=== PATIENT | female | born 1950 | race African-American/Black ===

== ENCOUNTER 2016-11-22 11:41 | Observation (INO) | payer MEDICARE, OTHER ==
[~2016-11-22] VITALS: Ht 177.8 cm; Wt 120.2 kg
[~2016-11-22 11:41] MED LIST: AMLO-324; DILT-32; FLUO-124 PO; LORA-249; REV20; SUCR1TAB; ZOLP5TAB2
[2016-11-22] MEDS ORDERED: ONDANSETRON HCL 4MG/2ML VIAL IV ONE (13:45)
[2016-11-22] MEDS ORDERED: MECLIZINE 25MG TABLET PO ONE (13:45)
[2016-11-22] MEDS ORDERED: KETOROLAC 30MG/ML VIAL IV ONE (13:45)
[2016-11-22 14:32] LABS: BASOPHILS % 0.3 % (0.0-2.0); EOSINOPHILS % 0.6 % (0.0-5.0); HEMATOCRIT. 35.9 % (36.0-48.0); HEMOGLOBIN. 11.9 g/dL (12.0-16.0); LYMPHOCYTES % 18.6 % (20.0-50.0); MEAN CORPUSCULAR HEMOGLOBIN 26.4 pg (28.0-32.0); MEAN CORPUSCULAR VOLUME 79.4 fL (81.0-99.0); MEAN PLATELET VOLUME 9.1 fl (7.4-10.4); MONOCYTES % 6.3 % (2.0-8.0); NEUTROPHILS % 74.2 % (40.0-76.0); PLATELET 282 x1000/uL (130-400); RED BLOOD CELL COUNT 4.52 mill/uL (4.2-5.4)
[2016-11-22 14:38] LABS: CHLORIDE 109 mEq/L (98-107)
[2016-11-22 14:45] LABS: CARBON DIOXIDE 28 mEq/L (21-32)
[2016-11-22 14:47] LABS: ETHANOL BLOOD < 10 mg/dL
[2016-11-22 15:03] LABS: BG BASE EXCESS 0.5 mmol/L (-2.0-2.0); BG CARBOXYHEMOGLOBIN 0.5 % (0.5-1.5); BG DEOXYHEMOGLOBIN 4.8 % (0.0-5.0); BG FRACTION INSPIRED OXYGEN 21; BG HCO3 ACT 25.1 mmol/L (22.0-26.0); BG METHEMOGLOBIN 0.1 % (0.0-1.5); BG OXYGEN SATURATION 95.2 % (92.0-98.5); BG OXYHEMOGLOBIN 94.6 % (94.0-97.0); BG PCO2 40.2 mmHg (35.0-45.0); BG PH 7.413 (7.350-7.450); BG SAMPLE SITE RIGHT BRACHIAL; BG TOTAL HEMOGLOBIN 12.7 g/dL (12.0-18.0); BG VENT MODE ROOM AIR
[2016-11-22 15:47] LABS: CLARITY URINE TURBID (CLEAR); COLOR URINE YELLOW (YELLOW); GLUCOSE URINE NEGATIVE (NEGATIVE); KETONES URINE NEGATIVE (NEGATIVE); LEUKOCYTE ESTERASE URINE NEGATIVE (NEGATIVE); NITRITE URINE NEGATIVE (NEGATIVE); OCCULT BLOOD URINE NEGATIVE (NEGATIVE); PH URINE 8.5 (4.5-8.0); PROTEIN URINE NEGATIVE (NEGATIVE); SPECIFIC GRAVITY URINE 1.017 (1.005-1.030)
[2016-11-22] MEDS ORDERED: DOCUSATE SODIUM 100MG CAPSULE PO PRN (16:00)
[2016-11-22] MEDS ORDERED: CLONIDINE 0.1MG TABLET PO PRN (16:00)
[2016-11-22] MEDS ORDERED: ONDANSETRON HCL 4MG/2ML VIAL IV PRN (16:00)
[2016-11-22] MEDS ORDERED: MECLIZINE 25MG TABLET PO PRN (16:00)
[2016-11-22] MEDS ORDERED: ACETAMINOPHEN 325MG TABLET PO PRN (16:00)
[2016-11-22 16:01] LABS: *AMPHETAMINES SCREEN URINE NEGATIVE (NEGATIVE); *BARBITURATES SCREEN URINE NEGATIVE (NEGATIVE); *BENZODIAZEPINES SCREEN URINE NEGATIVE (NEGATIVE); *COCAINE SCREEN URINE NEGATIVE (NEGATIVE); CANNABINOID URINE SCREEN NEGATIVE (NEGATIVE); METHADONE URINE SCREEN NEGATIVE (NEGATIVE); OPIATES URINE SCREEN NEGATIVE (NEGATIVE); PHENCYCLIDINE URINE SCREEN NEGATIVE (NEGATIVE)
[2016-11-22] MEDS: HYDROCODONE/ACETAMINOPHEN 5/325MG TABLET PO PRN ×2 (17:12→21:49)
[2016-11-22 20:00] VITALS: BP 134/83
[2016-11-22 20:10] VITALS: BP 134/83
[2016-11-22] MEDS ORDERED: SODIUM CHLORIDE 0.9% 1,000 ML IV SCH (20:30)
[2016-11-22] MEDS: SUCRALFATE 1G TABLET PO SCH (20:42)
[2016-11-22] MEDS: ENOXAPARIN 30MG/0.3ML SYR SUBCUT SCH (20:43)
[2016-11-23] VITALS: BP 128/76
[2016-11-23 04:00] VITALS: BP 120/76
[2016-11-23] MEDS ORDERED: AMLO10TA80 PO (04:05)
[2016-11-23] MEDS ORDERED: OMEP20CA10 PO (04:07)
[2016-11-23] MEDS ORDERED: MELO-58 PO ×2 (04:09)
[2016-11-23] MEDS ORDERED: TRAM50TA3 PO (04:10)
[2016-11-23 05:44] LABS: BASOPHILS % 0.3 % (0.0-2.0); EOSINOPHILS % 1.4 % (0.0-5.0); HEMATOCRIT. 34.6 % (36.0-48.0); HEMOGLOBIN. 11.7 g/dL (12.0-16.0); LYMPHOCYTES % 29.7 % (20.0-50.0); MEAN CORPUSCULAR HEMOGLOBIN 27.3 pg (28.0-32.0); MEAN CORPUSCULAR VOLUME 80.5 fL (81.0-99.0); MEAN PLATELET VOLUME 8.9 fl (7.4-10.4); MONOCYTES % 7.6 % (2.0-8.0); PLATELET 261 x1000/uL (130-400); RED CELL DISTRIBUTION WIDTH 15.4 % (11.6-14.6)
[2016-11-23 06:25] LABS: CHLORIDE 106 mEq/L (98-107)
[2016-11-23 06:41] LABS: CARBON DIOXIDE 29 mEq/L (21-32); HDL CHOLESTEROL 45 mg/dL (40-59); LDL CHOLESTEROL 89 mg/dL (5-100)
[2016-11-23 08:00] VITALS: BP 103/68
[2016-11-23] MEDS ORDERED: ASPIRIN 81MG EC TABLET PO SCH (09:00)
[2016-11-23] MEDS: SUCRALFATE 1G TABLET PO SCH ×2 (10:06→14:34)
[2016-11-23] MEDS: ENOXAPARIN 30MG/0.3ML SYR SUBCUT SCH (10:07)
[2016-11-23] MEDS: HYDROCODONE/ACETAMINOPHEN 5/325MG TABLET PO PRN ×2 (10:07→14:34)
[2016-11-23 12:00] VITALS: BP 110/69
[2016-11-23 12:31] VITALS: BP 103/59
[2016-11-23 14:34] VITALS: BP 103/59
== END 2016-11-23 17:05 | disposition home or self-care (01) ==
LOC: ER 13:34 → 7WST 15:24 → INTOOBSV 15:24
PROVIDERS: ADMIT Internal Medicine; ATTEND Internal Medicine
DX: R42 Dizziness and giddiness (principal); R11.2 Nausea with vomiting, unspecified; R10.9 Unspecified abdominal pain; R51 Headache; I27.2 Other secondary pulmonary hypertension; I10 Essential (primary) hypertension; Z87.11 Personal history of peptic ulcer disease
CPT/HCPCS: 36415; 36600; 70450; 71010; 80053; 80061; 80305; 81001; 82375; 82805; 83880; 85025; 93005; 93970; 96361; 96372; 96374; 96375; 96376; 99285; G0378; G0482; J1650; J1885; J2405; J7030; J8597

== ENCOUNTER 2017-01-15 12:40 | Emergency (ER) | payer MEDICARE ==
[~2017-01-15] VITALS: Ht 177.8 cm; Wt 117.0 kg
[~2017-01-15 12:40] MED LIST changes: +AMLO10TA80 PO; -DILT-32; +DILT240C62; +MELO-58 PO; +OMEP20CA10 PO; +TRAM50TA3 PO
[2017-01-15 14:21] LABS: BASOPHILS % 0.3 % (0.0-2.0); EOSINOPHILS % 0.6 % (0.0-5.0); HEMATOCRIT. 34.8 % (36.0-48.0); HEMOGLOBIN. 11.6 g/dL (12.0-16.0); LYMPHOCYTES % 28.6 % (20.0-50.0); MEAN CORPUSCULAR HEMOGLOBIN 26.2 pg (28.0-32.0); MEAN CORPUSCULAR VOLUME 78.4 fL (81.0-99.0); MEAN PLATELET VOLUME 8.7 fl (7.4-10.4); MONOCYTES % 7.6 % (2.0-8.0); NEUTROPHILS % 62.9 % (40.0-76.0); PLATELET 289 x1000/uL (130-400); RED BLOOD CELL COUNT 4.44 mill/uL (4.2-5.4); RED CELL DISTRIBUTION WIDTH 16.2 % (11.6-14.6)
[2017-01-15 14:28] LABS: D-DIMER 4.03 mg/L FEU (<0.50); INR 1.1; PROTHROMBIN TIME 11.1 sec
[2017-01-15 14:37] LABS: CARBON DIOXIDE 32 mEq/L (21-32); CHLORIDE 108 mEq/L (98-107); TROPONIN I < 0.02 ng/mL (0.00-0.04)
[2017-01-15] MEDS ORDERED: CEPHALEXIN 500MG CAPSULE PO ONE (15:30)
[2017-01-15] MEDS ORDERED: SULFAMETHOXAZOLE/TRIMETHOPRIM 800/160MG TABLET PO ONE (15:30)
[2017-01-15 16:13] VITALS: BP 126/80
== END 2017-01-15 16:15 | disposition home or self-care (01) ==
LOC: ER 14:12
DX: L03.116 Cellulitis of left lower limb (principal); M79.89 Other specified soft tissue disorders
CPT/HCPCS: 36415; 71010; 73610; 80053; 83880; 84484; 85025; 85379; 85610; 93005; 93970; 99285

== ENCOUNTER 2017-03-12 13:56 | Inpatient (IN) | payer MEDICARE, OTHER ==
[~2017-03-12] VITALS: Ht 177.8 cm; Wt 117.0 kg
[~2017-03-12 13:56] MED LIST changes: +AMLO-243; -AMLO-324; +MELO-106 PO; -MELO-58 PO
[2017-03-12] MEDS ORDERED: PANTOPRAZOLE SODIUM 40 MG/VIAL IV STA (18:38)
[2017-03-12] MEDS ORDERED: SODIUM CHLORIDE 0.9% 1,000 ML IV ONE (18:38)
[2017-03-12] MEDS ORDERED: ONDANSETRON HCL 4MG/2ML VIAL IV STA (18:38)
[2017-03-12 19:23] LABS: CLARITY URINE CLOUDY (CLEAR); COLOR URINE YELLOW (YELLOW); GLUCOSE URINE NEGATIVE (NEGATIVE); KETONES URINE NEGATIVE (NEGATIVE); LEUKOCYTE ESTERASE URINE NEGATIVE (NEGATIVE); NITRITE URINE NEGATIVE (NEGATIVE); OCCULT BLOOD URINE NEGATIVE (NEGATIVE); PROTEIN URINE NEGATIVE (NEGATIVE); SPECIFIC GRAVITY URINE 1.016 (1.005-1.030); UROBILINOGEN URINE 0.2 E.U./dL (0.2-1.0)
[2017-03-12 19:29] LABS: BASOPHILS % 0.5 % (0.0-2.0); EOSINOPHILS % 0.2 % (0.0-5.0); HEMATOCRIT. 29.3 % (36.0-48.0); HEMOGLOBIN. 9.6 g/dL (12.0-16.0); LYMPHOCYTES % 23.4 % (20.0-50.0); MEAN CORPUSCULAR HEMOGLOBIN 26.6 pg (28.0-32.0); MEAN CORPUSCULAR VOLUME 81.2 fL (81.0-99.0); MEAN PLATELET VOLUME 8.5 fl (7.4-10.4); MONOCYTES % 5.9 % (2.0-8.0); PLATELET 268 x1000/uL (130-400); RED CELL DISTRIBUTION WIDTH 16.6 % (11.6-14.6)
[2017-03-12 19:35] LABS: INR 1.1; PROTHROMBIN TIME 11.2 sec (9.4-11.6)
[2017-03-12 19:37] LABS: CHLORIDE 111 mEq/L (98-107)
[2017-03-12 19:38] LABS: CARBON DIOXIDE 26 mEq/L (21-32); ETHANOL BLOOD < 10 mg/dL
[2017-03-12 19:38] LABS: *AMPHETAMINES SCREEN URINE NEGATIVE (NEGATIVE); *BARBITURATES SCREEN URINE NEGATIVE (NEGATIVE); *BENZODIAZEPINES SCREEN URINE NEGATIVE (NEGATIVE); *COCAINE SCREEN URINE NEGATIVE (NEGATIVE); CANNABINOID URINE SCREEN NEGATIVE (NEGATIVE); METHADONE URINE SCREEN NEGATIVE (NEGATIVE); OPIATES URINE SCREEN NEGATIVE (NEGATIVE); PHENCYCLIDINE URINE SCREEN NEGATIVE (NEGATIVE)
[2017-03-12 19:45] LABS: TROPONIN I < 0.02 ng/mL (0.00-0.04)
[2017-03-12] MEDS ORDERED: MORPHINE SULFATE 4 MG/ML CPJ (NOT FOR IM USE) IV ONE (20:30)
[2017-03-12] MEDS ORDERED: HYDR25TA PO (23:45)
[2017-03-12] MEDS ORDERED: HYDR-523 PO (23:45)
[2017-03-12] MEDS ORDERED: MECL-109 PO (23:45)
[2017-03-12 23:48] VITALS: BP 100/61
[2017-03-13] VITALS: BP 116/64
[2017-03-13 00:35] VITALS: BP 102/59
[2017-03-13 00:40] VITALS: BP 102/59
[2017-03-13] MEDS: DEXT 5%/0.45% NACL 1000ML 1,000 ML IV SCH ×3 (01:47→22:17)
[2017-03-13 04:00] VITALS: BP 99/59
[2017-03-13] MEDS ORDERED: LEVOFLOXACIN 500MG PREMIX 100 ML IV SCH (04:00)
[2017-03-13 07:42] LABS: BASOPHILS % 0.3 % (0.0-2.0); EOSINOPHILS % 0.6 % (0.0-5.0); HEMATOCRIT. 26.1 % (36.0-48.0); HEMOGLOBIN. 8.8 g/dL (12.0-16.0); LYMPHOCYTES % 26.6 % (20.0-50.0); MEAN CORPUSCULAR HEMOGLOBIN 27.3 pg (28.0-32.0); MEAN CORPUSCULAR VOLUME 81.4 fL (81.0-99.0); MONOCYTES % 6.4 % (2.0-8.0); NEUTROPHILS % 66.1 % (40.0-76.0); PLATELET 232 x1000/uL (130-400); RED BLOOD CELL COUNT 3.21 mill/uL (4.2-5.4); RED CELL DISTRIBUTION WIDTH 16.7 % (11.6-14.6)
[2017-03-13] MEDS: PANTOPRAZOLE SODIUM 40 MG/VIAL IV SCH (08:36)
[2017-03-13 09:13] LABS: CARBON DIOXIDE 26 mEq/L (21-32); CHLORIDE 109 mEq/L (98-107)
[2017-03-13] MEDS ORDERED: POTASSIUM CHLORIDE INJ 40 MEQ in DEXT 5% WATER 250 ML IV NR (12:30)
[2017-03-13 16:54] LABS: HEMATOCRIT 28.3 % (36.0-48.0); HEMOGLOBIN 9.4 g/dL (12.0-16.0)
[2017-03-13 20:00] VITALS: BP 116/64
[2017-03-14] VITALS (7 sets, daily range): BP systolic 84–108; BP diastolic 44–68
[2017-03-14] MEDS: ACETAMINOPHEN 325MG TABLET PO PRN ×2 (01:40→09:06)
[2017-03-14 06:48] LABS: BASOPHILS % 0.2 % (0.0-2.0); EOSINOPHILS % 1.3 % (0.0-5.0); HEMATOCRIT. 24.6 % (36.0-48.0); HEMOGLOBIN. 8.1 g/dL (12.0-16.0); LYMPHOCYTES % 28.6 % (20.0-50.0); MEAN CORPUSCULAR HEMOGLOBIN 26.9 pg (28.0-32.0); MEAN CORPUSCULAR VOLUME 81.8 fL (81.0-99.0); MONOCYTES % 6.6 % (2.0-8.0); NEUTROPHILS % 63.3 % (40.0-76.0); PLATELET 229 x1000/uL (130-400); RED BLOOD CELL COUNT 3.01 mill/uL (4.2-5.4); RED CELL DISTRIBUTION WIDTH 16.4 % (11.6-14.6)
[2017-03-14 07:21] LABS: INR 1.1; PARTIAL THROMBOPLASTIN TIME 22.4 sec (23.4-31.0); PROTHROMBIN TIME 11.3 sec (9.4-11.6)
[2017-03-14 07:53] LABS: CARBON DIOXIDE 28 mEq/L (21-32); CHLORIDE 108 mEq/L (98-107)
[2017-03-14] MEDS: PANTOPRAZOLE SODIUM 40 MG/VIAL IV SCH (09:06)
[2017-03-14] MEDS: DEXT 5%/0.45% NACL 1000ML 1,000 ML IV SCH (13:17)
[2017-03-14] MEDS ORDERED: FENTANYL CITRATE/PF 50MCG/ML 2ML VIAL ONE (13:45)
[2017-03-14] MEDS ORDERED: SIMETHICONE 40 MG/0.6 ML 30ML ONE ×2 (13:45→16:06)
[2017-03-14] MEDS ORDERED: MIDAZOLAM HCL 5 MG/5 ML VIAL ONE (13:46)
[2017-03-14] MEDS ORDERED: MIDAZOLAM HCL 5 MG/5 ML VIAL IV PRN (13:47)
[2017-03-14] MEDS ORDERED: FENTANYL CITRATE/PF 50MCG/ML 2ML VIAL IV PRN (13:47)
[2017-03-14] MEDS ORDERED: SODIUM CHLORIDE 0.9% 10ML VIAL ONE (16:06)
== END 2017-03-14 18:30 | disposition home or self-care (01) | DRG 378 ==
LOC: ER 14:26 → EDBEDREQSVC 20:30 → 6EST 20:58 → EDBEDREQSVC 21:00 → CANRESERV 21:16 → ENRESERV 21:16 → 8WST 03-13 00:29
PROVIDERS: ADMIT Internal Medicine; ATTEND Internal Medicine
PROC: 0DB68ZX Excision of Stomach, Via Natural or Artificial Opening Endoscopic, Diagnostic (ICD-10-PCS; principal; 2017-03-14 13:00)
DX: K25.4 Chronic or unspecified gastric ulcer with hemorrhage (principal); D62 Acute posthemorrhagic anemia; I27.2 Other secondary pulmonary hypertension; I10 Essential (primary) hypertension; K57.30 Diverticulosis of large intestine without perforation or abscess without bleeding; D64.9 Anemia, unspecified; K64.8 Other hemorrhoids; F32.9 Major depressive disorder, single episode, unspecified; K21.9 Gastro-esophageal reflux disease without esophagitis; K29.60 Other gastritis without bleeding; K44.9 Diaphragmatic hernia without obstruction or gangrene; Z87.11 Personal history of peptic ulcer disease; Z90.710 Acquired absence of both cervix and uterus; Z79.899 Other long term (current) drug therapy; K25.0 Acute gastric ulcer with hemorrhage
CPT/HCPCS: 36415; 71010; 74176; 80053; 80305; 81001; 82553; 83690; 84484; 85014; 85018; 85025; 85610; 85730; 87040; 88305; 88313; 93005; 96361; 96374; 96375; 99285; A4216; C9113; G0482; J1956; J2250; J2270; J2405; J3010; J3480; J3490; J7030; J7060

== ENCOUNTER 2023-10-10 03:00 | Emergency (ER) | payer MEDICARE ==
[~2023-10-10] VITALS: Ht 177.8 cm; Wt 114.0 kg
[~2023-10-10 03:00] MED LIST changes: +ACET-3163 PO; +BUPR-46 PO; -DILT240C62; +DILT240C96; -FLUO-124 PO; +FLUO20CA39 PO; +FLUT16SP15 BOTHNSTRLS; +GABA300C PO; +HYDR-523 PO; +HYDR25TA MT; +HYDR25TA PO; +MECL-299 PO; +OMEP1CAP PO; -OMEP20CA10 PO; +OMEP20CA14 PO; +ONDA4TAB5 PO; +PANT40TA51 MT; +PANT40TA51 PO
[2023-10-10 03:16] VITALS: O2SAT 99
[2023-10-10 04:25] LABS: BASOPHILS % 0.9 % (0.0-2.0); EOSINOPHILS % 0.6 % (0.0-5.0); HEMATOCRIT. 36.6 % (36.0-48.0); HEMOGLOBIN. 12.5 g/dL (12.0-16.0); LYMPHOCYTES % 14.8 % (20.0-50.0); MEAN CORPUSCULAR HEMOGLOBIN 28.2 pg (28.0-32.0); MEAN CORPUSCULAR HGB CONC 34.1 g/dL (31.0-37.0); MEAN CORPUSCULAR VOLUME 82.5 fL (81.0-99.0); MEAN PLATELET VOLUME 8.8 fl (7.4-10.4); MONOCYTES % 7.3 % (2.0-8.0); NEUTROPHILS % 76.4 % (40.0-76.0); PLATELET 303 x1000/uL (130-400); RED BLOOD CELL COUNT 4.44 mill/uL (4.2-5.4); RED CELL DISTRIBUTION WIDTH 15.4 % (11.6-14.6); WHITE BLOOD COUNT 14.7 x1000/uL (4.5-11.0)
[2023-10-10 04:33] LABS: PARTIAL THROMBOPLASTIN TIME 25.9 sec (23.4-31.0)
[2023-10-10 04:37] LABS: ALANINE AMINOTRANSFERASE 13 IU/L (10-49); ALBUMIN 4.1 g/dL (3.2-4.8); ASPARTATE AMINOTRANSFERASE 16 IU/L (<34); BILIRUBIN TOTAL 0.5 mg/dL (0.1-1.0); CALCIUM 8.7 mg/dL (8.7-10.4); CARBON DIOXIDE 25 mEq/L (21-32); CHLORIDE 111 mEq/L (98-107); CREATININE 0.8 mg/dL (0.6-1.0); GLUCOSE 110 mg/dL (70-105); POTASSIUM 3.6 mEq/L (3.5-5.1); PROTEIN TOTAL 7.8 g/dL (6.0-8.3); SODIUM 141 mEq/L (136-145); UREA NITROGEN BLOOD 14 mg/dL (9-23)
[2023-10-10 04:41] LABS: ETHANOL BLOOD < 10 mg/dL (<10); TROPONIN I HIGH SENSITIVITY < 4 ng/L (3.0-34)
[2023-10-10] MEDS: LORAZEPAM 0.5MG TABLET PO ONE (06:07)
[2023-10-10 07:14] VITALS: TEMP 98.1
[2023-10-10 10:00] VITALS: BP 156/86; PULSE 81; RESP 16
== END 2023-10-10 10:07 | disposition home or self-care (01) ==
LOC: ER 03:00
DX: F43.20 Adjustment disorder, unspecified (principal); I25.2 Old myocardial infarction; I10 Essential (primary) hypertension; J45.909 Unspecified asthma, uncomplicated; Z79.899 Other long term (current) drug therapy
CPT/HCPCS: 36415; 71045; 80053; 80320; 83880; 84484; 85025; 93005; 99285; G0480